=== PATIENT | male | born 2000 | race Two or more races ===

== ENCOUNTER 2022-08-25 04:13 | Emergency (ER) | payer SELFPAY ==
--- NOTE | ~2022-08-25 | XR_ITS ---
Portable chest x-ray Comparison: None Clinical History: Chest pain Findings: Lungs are clear, without focal consolidation or pleural effusion. Cardiomediastinal silho uette is unremarkable. Bones and soft tissues are unremarkable. Impression: Clear lungs. Reviewed, dictated and finalized at location M. Impression: Clear lungs.
[2022-08-25 04:17] VITALS: BP 129/69; PULSE 92; RESP 22; TEMP 36.6; O2SAT 97
--- NOTE | 2022-08-25 04:26 | ECG_ITS ---
Measurements Intervals [place] Rate: 78 P: 14 MN: 135 QRS: 81 QRSD: 92 T: 31 QT: 345 QTc: 393 Interpretive Statements SINUS RHYTHM MINIMAL Q WAVES- INF/LAT LEADS NONSPECIFIC ST & T-WAVE ABNORMALITY- INFERIOR LEADS BORDERLINE ECG NO PREVIOUS ECG AVAILABLE FOR COMPARISON Electronically Signed On 08-25-2022 6:41:14 CDT by John Chun D.O.
--- NOTE | 2022-08-25 04:30 | PC.NURSE ---
pt c/o palpitations and sob. pt very anxious, hyperventilating and restless. states he had a similar episode when his father .
[2022-08-25] MEDS: SODIUM CHLORIDE 0.9% IV 1,000 ML 999 ML IV CONT (05:02)
[2022-08-25 05:10] LABS: Basophils Percent Auto 0.2 % (0.2-1.2); Eosinophils Absolute Auto 0.2 K/mm3 (0-0.3); Eosinophils Percent Auto 2.4 % (0-4.4); Hematocrit 45.4 % (42.0-52.0); Hemoglobin 15.5 g/dL (14.0-18.0); Immature Granulocyte Absolute 0.03 K/mm3 (0.00-0.031); Immature Granulocyte Percent A 0.4 % (0-0.5); Lymphocytes Absolute Auto 2.22 K/mm3 (0.9-3.2); Lymphocytes Percent Auto 27.6 % (18.3-44.2); Mean Corpuscular HGB Conc 34.1 g/dl (32-36); Mean Corpuscular Hemoglobin 28.7 pg (26-34); Mean Corpuscular Volume 84.1 fl (80-100); Mean Platelet Volume 9.9 fl (7.4-10.4); Monocytes Absolute Auto 0.5 K/mm3 (0.1-0.6); Monocytes Percent Auto 5.8 % (2.6-8.5); Neutrophils Absolute Auto 5.1 K/mm3 (1.3-6.7); Neutrophils Percent Auto 63.6 % (45.5-73.1); Platelet Count Result 245 k/mm3 (150-375); Red Cell Distribution Width 12.3 % (11.5-14.5); White Blood Count 8.1 K/mm3 (4.5-10.0)
[2022-08-25 05:20] LABS: Prothrombin Time 13.2 Seconds (11.1-14.7)
[2022-08-25 05:21] LABS: Partial Thromboplastin Time 29.9 SECONDS (22.3-36.8)
[2022-08-25 05:28] LABS: Alanine Aminotransferase 28 U/L (6-50); Albumin Level 4.8 g/dL (3.5-5.1); Alkaline Phosphatase 84 U/L (38-126); Anion Gap 7 mmol/L (8-16); Aspartate Amino Transferase 38 U/L (17-59); Bilirubin,Total 0.5 mg/dL (0.2-1.3); Blood Urea Nitrogen 16 mg/dL (9-20); Calcium 9.5 mg/dL (8.4-10.2); Carbon Dioxide 28 mmol/L (22-30); Chloride 100 mmol/L (98-107); Estimated CRCL calculation 113 ml/min; Estimated Glomerular Filt Rate > 60; Glucose 140 mg/dL (65-110); Lactic Acid Reflex 2.1 mmol/L (0.7-2.0); Lipase 128 U/L (23-300); Magnesium 2.2 mg/dL (1.6-2.3); Potassium 3.7 mmol/L (3.4-5.0); Sodium 135 mmol/L (137-145)
[2022-08-25 05:31] LABS: Appearance Urine Clear (Clear); Bilirubin Urine Negative (Negative); Blood Urine Negative (Negative); Color Urine Yellow (Yellow); Glucose Urine UA Negative (Negative); Ketones Urine Negative (Negative); Leukocyte Esterase Ur Negative LEU/UL (Negative); Nitrate Urine Negative (Negative); Protein Urine Negative (Negative); Specific Grav Ur 1.004 (1.001-1.035); Urobilinogen Urine 0.2 mg/dL (<2.0); pH Urine 6.5 (5.0-9.0)
--- NOTE | 2022-08-25 05:32 | ED.GENADULT ---
HPI - General Adult General Chief complaint: Anxiety Stated complaint: panic attack Time Seen by Provider: 08/25/22 04:37 History of Present Illness HPI narrative: 2-year-old gentleman who presents the emergency department with chief complaint of anxiety and chest discomfort. Patient reports that he worked out this evening and then when he got back home he started to feel anxious felt as though his heart was beating fast and felt short of breath. Patient states he had a similar episode in the past when he had a family member . Patient reports that type some chills and body aches patient denies fever Related Data Allergies Allergy/AdvReac Type Severity Reaction Status Date / Time No Known Allergies Allergy Verified 08/25/22 04:14 Review of Systems Review of Systems: A 10 system review of systems was completed on the patient and is negative except for what is stated in the HPI. Nursing and ancillary documentation was reviewed. Exam Narrative: GENERAL: Well-appearing, well-nourished, and in no acute distress. HEAD: Normocephalic, atraumatic. EYES: PERRLA and EOMI. ENT: Nares clear, no rhinorrhea or epistaxis. Mucous membranes moist. NECK: Supple. CHEST: Clear to auscultation. No respiratory distress. HEART: Regular rate and rhythm. No murmur heard. Normal peripheral pulses. ABDOMEN: Soft, nontender, nondistended, normal active bowel sounds. EXTREMITIES: Normal range of motion. No edema. SKIN: Warm, dry, no rash. NEURO: No focal deficits. Alert and oriented x3. PSYCH: Normal mood and affect. Course Vital Signs Vital signs: Vital Signs Temperature 36.6 C 08/25/22 04:17 Pulse Rate 92 08/25/22 04:17 Respiratory Rate 22 H 08/25/22 04:17 Blood Pressure 129/69 08/25/22 04:17 Pulse Oximetry 97 08/25/22 04:17 Oxygen Delivery Room Air 08/25/22 04:17 Temperature 36.6 C 08/25/22 04:17 Pulse Rate 92 08/25/22 04:17 Respiratory Rate 22 H 08/25/22 04:17 Blood Pressure 129/69 08/25/22 04:17 Pulse Oximetry 97 08/25/22 04:17 Oxygen Delivery Room Air 08/25/22 04:17 Medical Decision Making MDM Narrative Medical decision making narrative: Differential diagnosis includes anxiety, COVID, upper respiratory infection, pneumonia, ACS, dysrhythmia EKG is sinus rhythm rate of [address] elevation or ST depression X-ray interpreted by me shows no evidence of focal infiltrate Laboratory studies were obtained which showed a normal troponin urinalysis and COVID were negative chest x-ray was also interpreted by the radiologist that showed no focal infiltrate. Patient is feeling better at this time Vital Signs Vital Signs: Vital Signs Temperature 36.6 C 08/25/22 04:17 Pulse Rate 92 08/25/22 04:17 Respiratory Rate 22 H 08/25/22 04:17 Blood Pressure 129/69 08/25/22 04:17 Pulse Oximetry 97 08/25/22 04:17 Oxygen Delivery Room Air 08/25/22 04:17 Temperature 36.6 C 08/25/22 04:17 Pulse Rate 92 08/25/22 04:17 Respiratory Rate 22 H 08/25/22 04:17 Blood Pressure 129/69 08/25/22 04:17 Pulse Oximetry 97 08/25/22 04:17 Oxygen Delivery Room Air 08/25/22 04:17 Lab Data 08/25/22 04:59 08/25/22 04:59 Labs: Lab Results 08/25/22 08/25/22 08/25/22 Range/Units 04:59 04:59 04:59 WBC 8.1 (4.5-10.0) K/mm3 RBC 5.40 (4.6-6.20) M/mm3 Hgb 15.5 (14.0-18.0) g/dL Hct 45.4 (42.0-52.0) % MCV 84.1 (80-100) fl MCH 28.7 (26-34) pg MCHC 34.1 (32-36) g/dl RDW 12.3 (11.5-14.5) % Plt Count 245 (150-375) k/mm3 MPV 9.9 (7.4-10.4) fl Immature Gran % (Auto) 0.4 (0-0.5) % Neut % (Auto) 63.6 (45.5-73.1) % Lymph % (Auto) 27.6 (18.3-44.2) % [place] % (Auto) 5.8 (2.6-8.5) % Eos % (Auto) 2.4 (0-4.4) % Baso % (Auto) 0.2 (0.2-1.2) % Lymph # (Auto) 2.22 (0.9-3.2) K/mm3 [place] # (Auto) 0.5 (0.1-0.6) K/mm3 Eos # (Auto) 0.2 (0-0.3) K/mm3 Baso # (Auto) 0.0
[2022-08-25 05:42] LABS: Troponin I < 0.012 ng/mL (0.000-0.034)
[2022-08-25 05:45] LABS: Influenza A QL RT-PCR Negative (Negative); Influenza B QL RT-PCR Negative (Negative); SARS-CoV-2 RNA PCR Negative
[2022-08-25 05:57] LABS: Add Urine Microscopic? NO
[2022-08-25 07:08] VITALS: BP 155/72; PULSE 70; RESP 16; O2SAT 100
[2022-08-25 08:07] LABS: Reflex Lactic Acid Yes or No Add Lactic
== END 2022-08-25 07:09 | disposition home or self-care (01) ==
PROVIDERS: Emergency Provider Emergency Medicine; PCP Emergency Medicine
DX: R07.89 Other chest pain (principal); R00.2 Palpitations; F41.9 Anxiety disorder, unspecified; Z20.822 Contact with and (suspected) exposure to COVID-19
CPT/HCPCS: 36415; 71045; 80053; 81003; 83605; 83690; 83735; 84484; 85025; 85610; 85730; 87636; 93005; 96360; 99283; J7030